=== PATIENT | male | born 1965 | race Hispanic/Latino ===

== ENCOUNTER 2020-11-29 12:48 | Emergency (ER) | payer MEDICARE ==
[~2020-11-29] VITALS: Ht 162.6 cm; Wt 67.1 kg
[2020-11-29 14:56] VITALS: BP 120/79
== END 2020-11-29 15:01 | disposition home or self-care (01) ==
LOC: ER 13:30
DX: H83.03 Labyrinthitis, bilateral (principal); J06.9 Acute upper respiratory infection, unspecified; R50.9 Fever, unspecified; J32.9 Chronic sinusitis, unspecified
CPT/HCPCS: 70450; 99283

== ENCOUNTER 2021-02-13 12:08 | Emergency (ER) | payer MEDICARE ==
[~2021-02-13] VITALS: Ht 162.6 cm; Wt 65.3 kg
[2021-02-13] MEDS ORDERED: MECLIZINE HCL12.5 MG PO (12:44)
== END 2021-02-13 12:55 | disposition home or self-care (01) ==
LOC: ER 12:21
DX: H81.393 Other peripheral vertigo, bilateral (principal)
CPT/HCPCS: 99282